=== PATIENT | male | born 1990 | race Hispanic/Latino ===

== ENCOUNTER 2018-12-17 14:51 | Emergency (ER) ==
[~2018-12-17 14:51] MED LIST: Naloxone HCl 0.4 mg/ml Vial ONE
[2018-12-17] MEDS ORDERED: Naloxone HCl 0.4 mg/ml Vial ONE (14:56)
== END 2018-12-17 15:02 | disposition home or self-care (01) ==
LOC: NAV ERS 14:51
DX: T65.91XA Toxic effect of unspecified substance, accidental (unintentional), initial encounter (principal)
CPT/HCPCS: 96374; J2310

== ENCOUNTER 2021-04-27 18:33 | Emergency (ER) | payer SELFPAY | END 2021-04-27 19:02 | LOC: NAV ERS 18:33 | DX: Z04.1 Encounter for examination and observation following transport accident (principal) | CPT/HCPCS: 99282 ==